=== PATIENT | male | born 1965 | race Caucasian/White ===

== ENCOUNTER 2021-04-04 08:51 | Emergency (ER) | payer BC ==
[2021-04-04 09:37] LABS: HEMOGLOBIN 15.9 gm/dl (14.0-17.5); RED BLOOD COUNT 5.28 M/UL (4.20-5.50); WHITE BLOOD COUNT 7.3 K/UL (4.5-11.0)
[2021-04-04 10:38] LABS: BUN/CREATININE RATIO 17 (0-10)
== END 2021-04-04 19:50 | disposition short-term general hospital (02) ==
LOC: ER1 08:51
PROVIDERS: Emergency Medicine
DX: R29.898 Other symptoms and signs involving the musculoskeletal system (principal); F17.200 Nicotine dependence, unspecified, uncomplicated; Z20.822 Contact with and (suspected) exposure to COVID-19
CPT/HCPCS: 70450; 70496; 70498; 71045; 72131; 80053; 82550; 82553; 83874; 84484; 85025; 85610; 85730; 93005; 93925; 93971; 99285; Q9967; U0002